=== PATIENT | male | born 1980 | race Caucasian/White ===

== ENCOUNTER 2021-11-18 19:26 | Emergency (ER) | payer OTHER ==
[2021-11-18] MEDS ORDERED: Sodium Chloride 0.9% 10 ML Syringe FLUSH PRN (19:57)
[2021-11-18] MEDS ORDERED: HYDROmorphone 1 MG/ML Syringe IVPUSH ONE (19:58)
[2021-11-18] MEDS ORDERED: LORazepam 1 MG Tab PO ONE (19:59)
--- NOTE | 2021-11-18 20:32 | EDM.PDOC ---
ED HPI GENERAL MEDICAL PROBLEM - General Chief Complaint: Cardiovascular Problem Stated Complaint: CHEST/LEFT ARM/NECK PAIN Time Seen by Provider: 11/18/21 19:39 Source of Information: Reports: Patient History Limitations: Reports: No Limitations - History of Present Illness INITIAL COMMENTS - FREE TEXT/NARRATIVE: The patient presents with left arm pain and chest pain. He also has a headache. This started a couple hours ago. He has a history of pain to the left shoulder scapular area. He gets trigger point injections once per year. He has been to a couple doctors to try to figure it out but no real reason has been found. He said the pain went down his arm and into his chest. He also developed a headache. He then got anxious. He took a dose of klonopin. That may have helped some with the anxiety. He has no fever, chills, cough, shortness of breath, abdominal pain, nausea or vomiting. He has no history of heart problems. Onset: Sudden Duration: Hour(s): Location: Reports: Head, Chest, Upper Extremity, Left Quality: Reports: Sharp, Stabbing Severity: Severe Improves with: Reports: None Worsens with: Reports: None Associated Symptoms: Reports: Chest Pain, Headaches. Denies: Cough, Fever/Chills, Shortness of Breath Left Arm Pain Score (Numeric/FACES): 8 - Related Data Allergies Allergy/AdvReac Type Severity Reaction Status Date / Time trazodone Allergy Respiratory Verified 11/18/21 19:50 Depression Home Meds: Home Meds Baclofen 5 mg PO DAILY 11/18/21 [History] ClonazePAM [KlonoPIN] 1 mg PO BID PRN 11/18/21 [History] Finasteride 1.25 mg PO DAILY 11/18/21 [History] Gabapentin [Neurontin] 300 mg PO DAILY 11/18/21 [History] Hydrocodone/Acetaminophen [Hydrocodone-Acetamin 5-325 mg] 1 - 2 each PO Q6H PRN #15 tablet 11/18/21 [Rx] guanFACINE 1 mg PO DAILY 11/18/21 [History] Past Medical History Other Musculoskeletal History: back pain- trigger injections Neurological History: Reports: Migraines Psychiatric History: Reports: Anxiety, Panic Attack Social & Family History - Caffeine Use Caffeine Use: Reports: Coffee - Recreational Drug Use Recreational Drug Use: No ED ROS GENERAL - Review of Systems Review Of Systems: See Below Constitutional: Reports: No Symptoms HEENT: Reports: No Symptoms Respiratory: Reports: No Symptoms Cardiovascular: Reports: Chest Pain Endocrine: Reports: No Symptoms GI/Abdominal: Reports: No Symptoms : Reports: No Symptoms Musculoskeletal: Reports: Shoulder Pain (Left and down his left arm) Skin: Reports: No Symptoms Neurological: Reports: Headache ED EXAM, GENERAL - Physical Exam Exam: See Below Exam Limited By: No Limitations General Appearance: Alert, No Apparent Distress Ears: Normal External Exam Nose: Normal Inspection Head: Atraumatic, Normocephalic Neck: Normal Inspection, Supple, Non-Tender Respiratory/Chest: No Respiratory Distress, Lungs Clear, Normal Breath Sounds Cardiovascular: Regular Rate, Rhythm, No Edema, No Rub GI/Abdominal: Soft, Non-Tender, No Organomegaly Back Exam: Other (Pain to the left trapezious area) Extremities: Normal Inspection Neurological: Alert, Oriented #1 Interpretation EKG Date: 11/18/21 Time: 19:46 Rhythm: NSR Rate (Beats/Min): 88 Lindsay: LAD-Left Lindsay Deviation P-Wave: Present QRS: Normal ST-T: Normal QT: Normal Course - Vital Signs Last Recorded V/S: Last Vital Signs Temp 97.6 F 11/18/21 19:39 Pulse 87 11/18/21 19:39 Resp 18 11/18/21 19:39 BP 133/100 H 11/18/21 19:39 Pulse Ox 16 L 11/18/21 19:39 - Orders/Labs/Meds Orders: Active Orders 24 hr Category Date Time Status Cardiac Monitoring [RC] . DIRECTED Care 11/18/21 19:57 Active Peripheral IV Care [RC] . DIRECTED Care 11/18/21 19:58 Active Sodium Chloride 0.9% [Saline Flush] Med 11/18/21 19:57 Active 10 ml FLUSH ASDIRECTED PRN Peripheral IV Insertion Adult [OM.PC] Stat Oth 11/18/21 19:57 Ordered Medication Orders Sodium Chloride (Sodium Chloride 0.9% 10 Ml Syringe) 10 ml FLUSH ASDIRECTED PRN PRN Reason: Keep Vein Open Labs: Laboratory Tests 11/18/21 11/18/21 11/18/21 Range/Units 20:14 20:14 20:14 WBC 8.12 (4.23-9.07) K/mm3 RBC 5.70 (4.63-6.08) M/mm3 Hgb 17.0 (13.7-17.5) gm/dl Hct 51.4 H (40.1-51.0) % MCV 90.2 (79.0-92.2) fl MCH 29.8 (25.7-32.2) pg MCHC 33.1 (32.2-35.5) g/dl RDW Std Deviation 42.9 (35.1-43.9) fL Plt Count 354 H (163-337) K/mm3 MPV 9.1 L (9.4-12.3) fl Neut % (Auto) 43.6 (34.0-67.9) % Lymph % (Auto) 42.9 (21.8-53.1) % Newton % (Auto) 11.0 (5.3-12.2) % Eos % (Auto) 1.6 (0.8-7.0) Baso % (Auto) 0.7 (0.1-1.2) % Neut # (Auto) 3.54 (1.78-5.38) K/mm3 Lymph # (Auto) 3.48 (1.32-3.57) K/mm3 Newton # (Auto) 0.89 H (0.30-0.82) K/mm3 Eos # (Auto) 0.13 (0.04-0.54) K/mm3 Baso # (Auto) 0.06 (0.01-0.08) K/mm3 D-Dimer, Quantitative < 0.19 L (0.19-0.50) mg/L Sodium 142 (136-145) mEq/L Potassium 3.7 (3.5-5.1) mEq/L Chloride 105 (98-107) mEq/L Carbon Dioxide 27 (21-32) mEq/L Anion Gap 13.7 (5-15) BUN 11 (7-18) mg/dL Creatinine 1.1 (0.7-1.3) mg/dL Est Cr Clr Drug Dosing 90.16 mL/min Estimated GFR (MDRD) > 60 (>60) mL/min BUN/Creatinine Ratio 10.0 L (14-18) Glucose 96 (70-99) mg/dL Calcium 8.6 (8.5-10.1) mg/dL Total Bilirubin 0.4 (0.2-1.0) mg/dL AST 29 (15-37) U/L ALT 38 (16-63) U/L Alkaline Phosphatase 104 (46-116) U/L Troponin I < 0.017 (0.00-0.056) ng/mL Total Protein 7.6 (6.4-8.2) g/dl Albumin 3.6 (3.4-5.0) g/dl Globulin 4.0 gm/dL Albumin/Globulin Ratio 0.9 L (1-2) Meds: Medications Generic Name Dose Route Start Last Admin Trade Name Freq PRN Reason Stop Dose Admin Sodium Chloride 10 ml 11/18/21 19:57 Sodium Chloride 0.9% 10 Ml Syringe FLUSH ASDIRECTED PRN Keep Vein Open Discontinued Medications Generic Name Dose Route Start Last Admin Trade Name Freq PRN Reason Stop Dose Admin Hydromorphone HCl 1 mg 11/18/21 19:58 11/18/21 20:50 Hydromorphone 1 Mg/Ml Syringe IVPUSH 11/18/21 19:59 Not Given ONETIME ONE Lorazepam 1 mg 11/18/21 19:59 11/18/21 20:15 Lorazepam 1 Mg Tab PO 11/18/21 20:00 1 mg ONETIME ONE Administration - Re-Assessments/Exams Free Text/Narrative Re-Assessment/Exam: 11/18/21 20:35 I ordered an IV saline lock, EKG, CXR, labs, dilaudid 1mg IV and ativan 1mg PO. 11/18/21 21:09 His EKG shows a NSR with no acute changes. His CXR looks good. His CBC and CMP look good. His troponin and D-dimer are negative. He feels better. He did not want the dilaudid. Departure - Departure Time of Disposition: 21:10 Disposition: Home, Self-Care 01 Condition: Good Clinical Impression: Atypical chest pain Left shoulder pain Qualifiers: Chronicity: acute Qualified Code(s): M25.512 - Pain in left shoulder Prescriptions: Hydrocodone/Acetaminophen [Hydrocodone-Acetamin 5-325 mg] 1 - 2 each PO Q6H PRN #15 tablet PRN Reason: Pain Referrals: Yumiko Suarez NP [Primary Care Provider] - Jacky England PA-C [Physician [employer] Convey[employer] Operator] - 1 Week Forms: ED Department Discharge Additional Instructions: Take tylenol or motrin for pain. If that does not help, try the hydrocodone. Follow up with Jacky England. I think he does trigger point injections. Please return if you are worse. Sepsis Event Note (ED) - Evaluation Sepsis Screening Result: No Definite Risk - Focused Exam Vital Signs: Vital Signs Temp Pulse Resp BP Pulse Ox 11/18/21 19:39 97.6 F 87 18 133/100 H 16 L - My Orders Last 24 Hours: My Active Orders 11/18/21 19:57 Cardiac Monitoring [RC] . DIRECTED Sodium Chloride 0.9% [Saline Flush] 10 ml FLUSH ASDIRECTED PRN Peripheral IV Insertion Adult [OM.PC] Stat 11/18/21 19:58 Peripheral IV Care [RC] . DIRECTED - Assessment/Plan Last 24 Hours: My Active Orders 11/18/21 19:57 Cardiac Monitoring [RC] . DIRECTED Sodium Chloride 0.9% [Saline Flush] 10 ml FLUSH ASDIRECTED PRN Peripheral IV Insertion Adult [OM.PC] Stat 11/18/21 19:58 Peripheral IV Care [RC] . DIRECTED
--- NOTE | 2021-11-18 20:45 | CR ---
Frontal view of the chest was obtained. Comparison: No prior chest imaging is available. Heart size and mediastinum are within normal limits. Lung markings are slightly increased within the right lung base which are most likely incidental. Lungs otherwise are clear. Bony structures show nothing acute. Impression: 1. Nothing acute is definitely appreciated on frontal chest x-ray. Diagnostic code #1
== END 2021-11-18 21:29 | disposition home or self-care (01) ==
LOC: JD.ED 19:26
DX: R07.89 Other chest pain (principal); M25.512 Pain in left shoulder; Z88.5 Allergy status to narcotic agent
CPT/HCPCS: 36415; 71045; 80053; 84484; 85025; 85379; 93005; 99285; A9270